=== PATIENT | male | born 1955 | race Caucasian/White ===

== ENCOUNTER 2020-08-26 15:17 | Outpatient (CLI) | payer OTHER | END 2020-08-26 15:23 | disposition home or self-care (01) | LOC: RAD 15:17 | PROVIDERS: ATTEND Physical Medicine & Rehabilitation | DX: M51.37 Other intervertebral disc degeneration, lumbosacral region (principal); M47.817 Spondylosis without myelopathy or radiculopathy, lumbosacral region; M16.0 Bilateral primary osteoarthritis of hip ==

== ENCOUNTER 2020-09-16 11:15 | Outpatient (CLI) | payer OTHER | END 2020-09-16 11:38 | disposition home or self-care (01) | LOC: SONOGRAMA 11:15 | PROVIDERS: ATTEND Internal Medicine | DX: R16.1 Splenomegaly, not elsewhere classified (principal); R59.0 Localized enlarged lymph nodes; D69.49 Other primary thrombocytopenia; R74.9 Abnormal serum enzyme level, unspecified ==